=== PATIENT | male | born 1980 | race Caucasian/White ===

== ENCOUNTER 2016-08-14 09:13 | Emergency (ER) | payer OTHER ==
[2016-08-14 10:02] VITALS: BP 146/93
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
== END 2016-08-14 10:42 | disposition home or self-care (01) ==
LOC: UCCORT 09:13
DX: J06.9 Acute upper respiratory infection, unspecified (principal); F17.220 Nicotine dependence, chewing tobacco, uncomplicated
CPT/HCPCS: 99212; G0463

== ENCOUNTER 2016-09-21 16:42 | Emergency (ER) | payer OTHER ==
[2016-09-21 17:14] VITALS: BP 124/82
[2016-09-21] MEDS ORDERED: Albuterol/Ipratropium NEB.SOL* Albuterol 2.5 MG/Ipratropium 0.5 MG 3 ML INH ONE (17:27)
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
== END 2016-09-21 18:01 | disposition home or self-care (01) ==
LOC: UCCORT 16:42
DX: J18.9 Pneumonia, unspecified organism (principal); F17.220 Nicotine dependence, chewing tobacco, uncomplicated
CPT/HCPCS: 99212; A9270-GY; G0463

== ENCOUNTER 2017-01-22 10:40 | Emergency (ER) | payer OTHER ==
[2017-01-22 13:10] VITALS: BP 118/72
--- NOTE | 2017-01-22 13:35 | RAD ---
HISTORY: Headache, numbness and dizziness, nausea COMPARISONS: None TECHNIQUE: Multiple contiguous axial CT scans were obtained of the head without intravenous contrast. FINDINGS: HEMORRHAGE/INFARCT: There is no hemorrhage or acute infarct. MASSES/SHIFT: There is no mass or shift. EXTRA-AXIAL SPACES: There are no extra-axial fluid collections. SULCI AND VENTRICLES: The sulci and ventricles are normal in size and position for the patient's stated age. CEREBRUM: There are no focal parenchymal abnormalities. BRAINSTEM: There are no focal parenchymal abnormalities. CEREBELLUM: There are no focal parenchymal abnormalities. VESSELS: The vessels are grossly normal. PARANASAL SINUSES: The paranasal sinuses are clear. ORBITS: The orbits are unremarkable. BONES AND SOFT TISSUE: No bone or soft tissue abnormalities are noted. OTHER: None IMPRESSION: NO ACUTE INTRACRANIAL PATHOLOGY.
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
== END 2017-01-22 13:59 | disposition home or self-care (01) ==
LOC: UCCORT 10:40
DX: G44.209 Tension-type headache, unspecified, not intractable (principal); M54.12 Radiculopathy, cervical region; Z72.0 Tobacco use
CPT/HCPCS: 70450; 99212; G0463

== ENCOUNTER 2017-04-04 09:19 | Emergency (ER) | payer OTHER ==
[2017-04-04 09:30] VITALS: BP 122/82
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
== END 2017-04-04 09:46 | disposition home or self-care (01) ==
LOC: UCCORT 09:19
DX: J20.8 Acute bronchitis due to other specified organisms (principal); F17.220 Nicotine dependence, chewing tobacco, uncomplicated
CPT/HCPCS: 99211; G0463

== ENCOUNTER 2017-04-24 12:45 | Emergency (ER) | payer OTHER ==
[2017-04-24 13:40] VITALS: BP 142/88
--- NOTE | 2017-04-24 14:30 | RAD ---
INDICATION: Atraumatic left knee pain COMPARISON: None TECHNIQUE: 4 view radiograph of the left knee. FINDINGS: The visualized bones are well-corticated and properly aligned. The joint spaces are properly maintained. There is no radiographic evidence of joint effusion. There is no acute fracture, dislocation or other focal bony abnormality. IMPRESSION: Normal knee radiograph as described above. If the patient's symptoms persist, follow-up imaging is recommended.
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
== END 2017-04-24 14:42 | disposition home or self-care (01) ==
LOC: UCCORT 12:45
DX: M25.562 Pain in left knee (principal); M25.462 Effusion, left knee; F17.220 Nicotine dependence, chewing tobacco, uncomplicated
CPT/HCPCS: 99212; G0463

== ENCOUNTER 2017-05-29 12:47 | Emergency (ER) | payer OTHER ==
[2017-05-29 14:47] VITALS: BP 133/89
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
[2017-05-29] MEDS ORDERED: predniSONE TAB* 20 MG PO ONE (15:43)
[2017-05-29] MEDS ORDERED: Albuterol 2.5 MG/3 ML NEB.SOL* (0.083%) INH ONE (15:44)
== END 2017-05-29 16:32 | disposition home or self-care (01) ==
LOC: UCCORT 12:47
DX: J20.9 Acute bronchitis, unspecified (principal); R06.2 Wheezing; R09.81 Nasal congestion; F17.220 Nicotine dependence, chewing tobacco, uncomplicated
CPT/HCPCS: 99212; G0463; J7512

== ENCOUNTER 2017-07-22 10:56 | Emergency (ER) | payer OTHER ==
[2017-07-22 12:05] VITALS: BP 139/87
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
== END 2017-07-22 13:21 | disposition home or self-care (01) ==
LOC: UCCORT 10:56
DX: J10.1 Influenza due to other identified influenza virus with other respiratory manifestations (principal); R50.9 Fever, unspecified; Z72.89 Other problems related to lifestyle; Z72.0 Tobacco use
CPT/HCPCS: 87502; 87651; 99212; G0463

== ENCOUNTER 2017-08-20 10:30 | Emergency (ER) | payer OTHER ==
[2017-08-20 13:09] VITALS: BP 145/85
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
== END 2017-08-20 13:55 | disposition home or self-care (01) ==
LOC: UCCORT 10:30
DX: J40 Bronchitis, not specified as acute or chronic (principal); Z72.89 Other problems related to lifestyle; F17.210 Nicotine dependence, cigarettes, uncomplicated
CPT/HCPCS: 87502; 99212; G0463

== ENCOUNTER 2017-10-06 09:17 | Emergency (ER) | payer OTHER ==
[2017-10-06 09:44] VITALS: BP 166/103
[2017-10-06] MEDS ORDERED: Acetaminophen TAB* 325 MG PO ONE (10:38)
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
== END 2017-10-06 11:17 | disposition home or self-care (01) ==
LOC: UCCORT 09:17
DX: J06.9 Acute upper respiratory infection, unspecified (principal); J40 Bronchitis, not specified as acute or chronic; I10 Essential (primary) hypertension; J45.909 Unspecified asthma, uncomplicated; F17.290 Nicotine dependence, other tobacco product, uncomplicated
CPT/HCPCS: 87502; 87651; 99212; A9270-GY; G0463

== ENCOUNTER 2017-10-30 15:02 | Emergency (ER) | payer OTHER ==
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
[2017-10-30 15:47] VITALS: BP 162/106
[2017-10-30] MEDS ORDERED: Ibuprofen TAB* 600 MG PO ONE (16:02)
== END 2017-10-30 16:12 | disposition home or self-care (01) ==
LOC: UCCORT 15:02
DX: M54.5 Low back pain (principal); M62.830 Muscle spasm of back; F17.200 Nicotine dependence, unspecified, uncomplicated
CPT/HCPCS: 99212; A9270-GY; G0463

== ENCOUNTER 2018-05-15 11:28 | Emergency (ER) | payer OTHER ==
[2018-05-15 12:00] VITALS: BP 153/99
[2018-05-15] MEDS ORDERED: Ketorolac INJ* 60 MG/2 ML VIAL IM ONE (12:06)
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
== END 2018-05-15 12:38 | disposition home or self-care (01) ==
LOC: UCCORT 11:28
DX: M54.5 Low back pain (principal); M62.830 Muscle spasm of back; I10 Essential (primary) hypertension; F17.200 Nicotine dependence, unspecified, uncomplicated
CPT/HCPCS: 96372; 99212; G0463; J1885

== ENCOUNTER 2018-07-10 08:27 | Emergency (ER) | payer OTHER ==
[2018-07-10 08:39] VITALS: BP 153/103
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
== END 2018-07-10 09:03 | disposition home or self-care (01) ==
LOC: UCCORT 08:27
DX: I10 Essential (primary) hypertension (principal); F17.220 Nicotine dependence, chewing tobacco, uncomplicated; J06.9 Acute upper respiratory infection, unspecified
CPT/HCPCS: 87651; 99211; G0463

== ENCOUNTER 2018-07-15 09:38 | Emergency (ER) | payer OTHER ==
[2018-07-15 10:04] VITALS: BP 153/109
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
== END 2018-07-15 10:43 | disposition home or self-care (01) ==
LOC: UCCORT 09:38
DX: J06.9 Acute upper respiratory infection, unspecified (principal); F17.220 Nicotine dependence, chewing tobacco, uncomplicated
CPT/HCPCS: 99213; G0463

== ENCOUNTER 2019-02-27 17:36 | Emergency (ER) | payer OTHER ==
[2019-02-27 18:00] VITALS: BP 141/94
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
[2019-02-27] MEDS ORDERED: Ibuprofen TAB* 600 MG PO ONE (18:13)
== END 2019-02-27 18:20 | disposition home or self-care (01) ==
LOC: UCCORT 17:36
DX: M54.5 Low back pain (principal); I10 Essential (primary) hypertension; F17.220 Nicotine dependence, chewing tobacco, uncomplicated
CPT/HCPCS: 99212; A9270-GY; G0463

== ENCOUNTER 2019-06-25 14:31 | Emergency (ER) | payer OTHER ==
[2019-06-25 14:54] VITALS: BP 135/78
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
== END 2019-06-25 15:18 | disposition home or self-care (01) ==
LOC: UCCORT 14:31
DX: J32.9 Chronic sinusitis, unspecified (principal); J20.9 Acute bronchitis, unspecified; I10 Essential (primary) hypertension; F17.220 Nicotine dependence, chewing tobacco, uncomplicated
CPT/HCPCS: 99212; G0463

== ENCOUNTER 2019-09-15 18:07 | Emergency (ER) | payer OTHER ==
[2019-09-15 18:49] VITALS: BP 147/84
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
== END 2019-09-15 19:25 | disposition home or self-care (01) ==
LOC: UCCORT 18:07
DX: J06.9 Acute upper respiratory infection, unspecified (principal); R05 Cough; R09.89 Other specified symptoms and signs involving the circulatory and respiratory systems; J45.909 Unspecified asthma, uncomplicated; I10 Essential (primary) hypertension; F17.290 Nicotine dependence, other tobacco product, uncomplicated; Z79.899 Other long term (current) drug therapy
CPT/HCPCS: 99212; G0463; J7512